=== PATIENT | female | born 1955 | race African-American/Black ===

== ENCOUNTER 2025-02-25 11:15 | Day surgery (SDC) | payer MEDICARE, OTHER ==
[2025-02-21 09:40] LABS: MEAN PLATELET VOLUME 8.2 FL (7.4-10.4); RED CELL DISTRIBUTION WIDTH 15.4 % (11.5-14.5)
[2025-02-21 09:51] LABS: APTT 28 SECONDS (22-32); INR 1.1 INR
[2025-02-21 09:52] LABS: CHOL/HDL RATIO 1.8 (0.00-4.99); CREATININE 1.03 MG/DL (0.40-0.90); LDL CHOLESTEROL 43 MG/DL (50-100); TOTAL CARBON DIOXIDE 29.3 MMOL/L (24-32); eGFR 64 ML/MIN
[~2025-02-25] VITALS: Ht 157.5 cm; Wt 89.7 kg
[2025-02-25] VITALS (10 sets, daily range): BP systolic 161–186; BP diastolic 60–74; PULSE 41–71; RESP 13–16; TEMP 98.3; O2SAT 94–98
--- NOTE | 2025-02-25 11:38 | ELECTROCARDIOGRAPH REPORT ---
[facility] Test Date: 2025-02-25 Test Time: 11:33:12 Pat Name: ANAMIKA CAMARILLO Department: [facility] Patient ID: [id number] Room: Gender: F Cook Frozen Dessert: : 1955 Requested By: BLUE MARTINS Order Number: [id number] Reading MD: Dr. MAN Bird Measurements Intervals [place] Rate: 51 P: 38 AK: 207 QRS: -15 QRSD: 94 T: 43 QT: 418 QTc: 385 Interpretive Statements Sinus bradycardia Left ventricular hypertrophy Electronically Signed On 02-25-2025 17:26:[address] MAN Bird Please click the below link to view image of tracing.
[2025-02-25] MEDS ORDERED: ROSU10TA72 PO (12:02)
[2025-02-25] MEDS ORDERED: ASPI81TA52 PO (12:02)
[2025-02-25] MEDS ORDERED: ACET-814 PO (12:02)
[2025-02-25] MEDS ORDERED: LOSA-418 PO (12:02)
[2025-02-25] MEDS ORDERED: [UNRECOGNIZED DRUG - OTHER] PO (12:02)
[2025-02-25] MEDS ORDERED: ANAS1TAB10 PO (12:02)
[2025-02-25] MEDS ORDERED: calcium PO (12:02)
[2025-02-25] MEDS ORDERED: METO-395 PO (12:02)
[2025-02-25] MEDS ORDERED: PANT-47 PO (12:02)
[2025-02-25] MEDS ORDERED: MELO-102 PO (12:02)
[2025-02-25] MEDS ORDERED: CHOL100046 PO (12:02)
[2025-02-25] MEDS ORDERED: LIDOcaine 1% (10mg/ml) 2ml vial ONE (14:23)
[2025-02-25] MEDS ORDERED: verapamil 2.5 mg/ml inj IV ONE (14:23)
[2025-02-25] MEDS ORDERED: heparin 1,000unit/ml 10ml vial 10 ML ONE (14:24)
[2025-02-25] MEDS ORDERED: fentaNYL/PF 50MCG/1 ML 2ML syringe ONE (14:24)
[2025-02-25] MEDS ORDERED: midazolam 1 mg/ML 2ml injection ONE (14:24)
[2025-02-25] MEDS ORDERED: nitroGLYCERIN 500mcg/5mL D5W 5 ML IV ONE (14:30)
[2025-02-25] MEDS ORDERED: OXAZEpam 15mg capsule PO PRN (15:55)
[2025-02-25] MEDS ORDERED: ondansetron/PF 4mg/2ml inj IV PRN (15:55)
[2025-02-25] MEDS: hydrALAZINE 20mg/ml inj. IV ONE (16:22)
--- NOTE | 2025-03-09 13:43 | CARDIOLOGY REPORT ---
DATE OF SERVICE: 02/25/2025 DICTATING PHYSICIAN: Paras Medel MD CARDIAC CATHETERIZATION REPORT DATE OF STUDY: 02/25/2025 PROCEDURES PERFORMED: * Left heart catheterization. * Selective coronary angiography. * Left ventriculography. INDICATION: Continued chest pain. PHYSICIAN: Paras Medel MD DESCRIPTION OF PROCEDURE: After informed consent was obtained, the patient was brought to the cardiac labor arbitrator in a fasting state where the patient was prepped and draped in the usual sterile manner. After adequate anesthesia was obtained using 1% lidocaine to the right wrist, a 5-[place] sheath was inserted into the right radial artery using a modified Seldinger technique. Thereafter, using a cocktail of heparin, verapamil and nitroglycerin, the cocktail was given via the sheath in the radial artery to prevent coronary vasospasm and for anticoagulation. Next, using an Ultimate-2 catheter, the catheter was advanced under fluoroscopy guidance into the ascending aorta. the catheter was then manipulated to engage the left coronary system and coronary angiography of the left system was obtained. Next, the catheter was disengaged and manipulated to engage the right coronary artery and selective coronary angiography of the right coronary artery was obtained. Thereafter, the catheter was disengaged from the right coronary artery and manipulated to advance into the left ventricle where left ventriculography in the ARRIAGA position was obtained. The catheter was then removed. Hemostasis was obtained using the radial band. HEMODYNAMICS: For the patient's hemodynamics, please refer to the event log. There was no significant gradient across the aortic valve and catheter pullback. Left ventricular end diastolic pressure was 20 mmHg. FINDINGS: The patient has a short left main coronary artery. The left anterior descending coronary artery is a medium caliber vessel with mild luminal irregularities. The circumflex coronary artery is a codominant vessel with mild luminal irregularities. The right coronary artery is a medium caliber vessel with mild luminal irregularities. IMPRESSION: * Mild luminal irregularities with no significant coronary artery disease by angiography. * Left ventricular end diastolic pressure was 20 mmHg. Paras Medel MD TID: [id number] RECEIPT: [id number] ROBERT/MEGAN
== END 2025-02-25 18:15 | disposition home or self-care (01) ==
LOC: SSTAY O 11:15
PROVIDERS: ATTEND Student in an Organized Health Care Education/Training Program
DX: I20.89 Other forms of angina pectoris (principal); I10 Essential (primary) hypertension; Z79.01 Long term (current) use of anticoagulants; Z79.899 Other long term (current) drug therapy
CPT/HCPCS: 36415; 80048; 80061; 83695; 85025; 85610; 85730; 93005; 93458; 99152; A6258; A6402; C1894; J0360; J1644; J2003; J2250; J3010; J3490; J7030; Q0163; Q9967; Z7610; A6449